=== PATIENT | male | born 1995 | race Caucasian/White ===

== ENCOUNTER 2017-06-28 14:38 | Emergency (ER) | payer BC ==
[2017-06-28] MEDS ORDERED: LIDOCAINE 1% 2 ML VIAL ONE (17:37)
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
[2017-06-28 18:07] VITALS: BP 167/62
== END 2017-06-28 18:45 | disposition home or self-care (01) ==
LOC: ED 14:38
DX: S31.113A Laceration without foreign body of abdominal wall, right lower quadrant without penetration into peritoneal cavity, initial encounter (principal); V18.4XXA Pedal cycle driver injured in noncollision transport accident in traffic accident, initial encounter; Y93.55 Activity, bike riding
CPT/HCPCS: 12002; 99282; 99283

== ENCOUNTER 2020-10-06 15:45 | Emergency (ER) | payer BC, OTHER ==
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
--- NOTE | 2020-10-06 16:37 | XRAY Report ---
PROCEDURE: Chest 2 View X-Ray INDICATIONS: R chest injury TECHNIQUE: 2 view(s) of the chest. COMPARISON: None. FINDINGS: Surgical changes and devices: None. Lungs and pleura: No pleural effusions or pneumothorax. Lungs are clear. Mediastinum: Mediastinal contours are normal. Heart size is normal. Bones and chest wall: No suspicious bony abnormalities. Soft tissues appear unremarkable. IMPRESSION: No acute plain film abnormality is seen. If there is strong clinical concern for an acute injury in this patient with this given history, then please consider a dedicated chest CT with IV contrast for further evaluation. Reviewed by: Deny Elam MD on 10/06/2020 3:36 PM [facility] Approved by: Deny Elam MD on 10/06/2020 3:36 PM [facility] Station ID: [id number]
[2020-10-06 16:53] VITALS: BP 171/89
== END 2020-10-06 16:53 | disposition home or self-care (01) ==
LOC: ED 15:45
DX: M54.6 Pain in thoracic spine (principal); R51.9 Headache, unspecified; S40.812A Abrasion of left upper arm, initial encounter; S40.811A Abrasion of right upper arm, initial encounter; W14.XXXA Fall from tree, initial encounter; Y93.H2 Activity, gardening and landscaping
CPT/HCPCS: 99282; 99283